=== PATIENT | male | born 1965 | race Caucasian/White ===

== ENCOUNTER 2024-10-27 18:19 | Emergency (ER) | payer SELFPAY ==
[~2024-10-27] VITALS: Ht 172.7 cm; Wt 80.0 kg
[2024-10-27 18:27] VITALS: O2SAT 99
[2024-10-27] MEDS: KETOROLAC 30MG/ML VIAL IV STA (20:10)
[2024-10-27] MEDS: SODIUM CHLORIDE 0.9% 1,000 ML IV ONE (20:10)
[2024-10-27 20:35] LABS: HEMATOCRIT. 41.8 % (42.0-52.0); HEMOGLOBIN. 14.2 g/dL (14.0-18.0); MEAN CORPUSCULAR HEMOGLOBIN 31.9 pg (28.0-32.0); MEAN CORPUSCULAR HGB CONC 33.9 g/dL (31.0-37.0); MEAN CORPUSCULAR VOLUME 94.1 fL (80.0-94.0); MEAN PLATELET VOLUME 8.3 fl (7.4-10.4); PLATELET 273 x1000/uL (130-400); RED BLOOD CELL COUNT 4.44 mill/uL (4.7-6.1); RED CELL DISTRIBUTION WIDTH 12.9 % (11.6-14.6); WHITE BLOOD COUNT 16.3 x1000/uL (4.5-11.0)
[2024-10-27 20:36] LABS: CARBON DIOXIDE 24 mEq/L (21-32); DIFFERENTIAL COMMENT 1
[2024-10-27 20:37] LABS: CALCIUM 9.6 mg/dL (8.7-10.4)
[2024-10-27 20:41] LABS: CHLORIDE 105 mEq/L (98-107); CREATININE 1.1 mg/dL (0.6-1.3); POTASSIUM 3.9 mEq/L (3.5-5.1); SODIUM 139 mEq/L (136-145)
[2024-10-27 20:42] LABS: ETHANOL BLOOD 13 mg/dL (<10); GLUCOSE 173 mg/dL (70-105); UREA NITROGEN BLOOD 13 mg/dL (9-23)
[2024-10-27 20:43] LABS: PARTIAL THROMBOPLASTIN TIME 24.2 sec (23.4-31.0); PROTHROMBIN TIME 10.9 sec (9.6-11.0)
[2024-10-27 21:24] LABS: PLATELET ESTIMATE NORMAL
[2024-10-28] MEDS: ENOXAPARIN 80MG/0.8ML SYR SUBCUT ONE (02:39)
[2024-10-28 06:25] VITALS: TEMP 36.8
[2024-10-28 07:47] VITALS: BP 163/87; PULSE 81; RESP 14; O2SAT 99
== END 2024-10-28 08:34 | disposition short-term general hospital (02) ==
LOC: EDBD 18:25 → ER 18:25
DX: S32.401A Unspecified fracture of right acetabulum, initial encounter for closed fracture (principal); S32.591A Other specified fracture of right pubis, initial encounter for closed fracture; R07.9 Chest pain, unspecified; M47.892 Other spondylosis, cervical region; X58.XXXA Exposure to other specified factors, initial encounter; Y93.89 Activity, other specified; Y92.89 Other specified places as the place of occurrence of the external cause; Y99.8 Other external cause status; Z79.899 Other long term (current) drug therapy
CPT/HCPCS: 80048; 80320; 85025; 85610; 85730; 36415; 73552; 71045; 70450; 72125; 72192; 93005; 96361; 96374; 99285; 96372; J1885; J7030; J1650; G0480